=== PATIENT | male | born 2000 | race Two or more races ===

== ENCOUNTER 2018-12-22 11:37 | Emergency (ER) | payer OTHER ==
[~2018-12-22] VITALS: Ht 170.2 cm; Wt 63.5 kg
[2018-12-22 11:50] VITALS: Ht 170.2 cm; Wt 63.5 kg
[2018-12-22 12:20] LABS: BASOPHIL % 0.3 % (0-2); PLATELET COUNT 278 x10^3mcL (130-400); RED CELL DISTRIBUTION WIDTH 12.8 % (11.5-14.5)
[2018-12-22 12:30] LABS: CALCIUM 9.3 mg/dL (8.5-10.1); CARBON DIOXIDE 30.4 mmol/L (21-32); CHLORIDE SERUM 101 mmol/L (98-107); GFR1 > 60 mL/min; GLUCOSE SERUM 110 mg/dL (74-106); SODIUM SERUM 138 mmol/L (136-145)
[2018-12-22 12:35] LABS: ALBUMIN 4.3 g/dL (3.4-5.0); ALKALINE PHOSPHATASE 66 U/L (46-116); ALT/SGPT 178 U/L (16-63); AST/SGOT 55 U/L (15-37); LIPASE 143 IU/L (73-393)
[2018-12-22 14:03] VITALS: BP 132/71
== END 2018-12-22 13:55 | disposition home or self-care (01) ==
LOC: ED 11:37
PROVIDERS: Emergency Medicine
DX: K29.70 Gastritis, unspecified, without bleeding (principal); R42 Dizziness and giddiness
CPT/HCPCS: J2405; J7030